=== PATIENT | female | born 1945 | race Caucasian/White ===

== ENCOUNTER → 2017-03-20 | Outpatient (CLI) | payer MEDICARE ==
[~2017-03-20] MED LIST: ALB/IPRATROPIUM/1 E1 INH; AMITRIPTYLINE150 MG PO; ATORVASTATIN CA80 MG PO; BENZONATATE PO; CLOPIDOGREL BIS75 MG PO; DOXYCYCLINE HY100 M3 PO; DULOXETINE HCL30 MG PO; ESCITALOPRAM OX10 MG PO; FISH OIL 1,001000 M2; HUMALOG100 UNIT/2; HYDRALAZINE HCL50 MG PO; ISOSORBIDE DINI30 MG PO; LANTUS100 U/ML; MELATIN3 MG; PREDNISONE PO; PULMICORT180 MCG/A1 INH; RENVELA800 MG PO; TRIGLIDE160 M1 PO; ZESTRIL40 MG PO
--- NOTE | ~2017-03-20 | MR103 ---
[facility] A Service of [facility] [place] RADIOLOGY TEXT RESULTS PATIENT: ANDRIY LIZ LOCATION: [facility] : 47 UNIT #: [id number] AGE: [address]: Carine Grajeda SEX: F ORDER DR: [id number] [facility] [address] [place], [place] [address] [id number] O MR#: [id number] #: [id number] NAME: ANDRIY LIZ : 1945 SEX: F STUDY DATE/TIME: 03/20/2017 17:13 UNIT: [facility] ROOM: STUDY DESCRIPTION: MR Knee Wo Contrast Lt Attending Physician: Carine Grajeda P.A.-C. Ordering Physician: Carine Grajeda P.A.-C. Primary Care Physician: Emile Garland Jr., M.D. [facility] REPORT This report is preliminary unless electronic signature is present. EXAM MRI left knee, 03/20/17. COMPARISON Left knee radiographs, 09/12/16. HISTORY Order states left knee swelling and osteoarthritis. History sheets states medial knee pain for three months with swelling with no known injury. No reported knee surgery. There is a minimal effusion without a popliteal cyst. Patellofemoral joint space narrowing is present. There is fairly extensive grade 4 patellofemoral compartment chondromalacia predominating in the lateral patellar and lateral femoral trochlear facets with subarticular cysts. Quadriceps and patellar tendons are intact. Cruciate ligaments are normal. There is mild myxoid degeneration of the lateral meniscus without a tear. The lateral collateral ligament complex and popliteus tendon are intact. Articular cartilage of the lateral compartment is within normal limits. The medial meniscus and MCL are intact. There is focal grade 4 chondromalacia of the weightbearing medial femoral condyle measuring 9 mm AP x 6 mm transverse with underlying marrow edema. There is no marrow lesion, fracture or sizeable loose body. Exam is motion degraded. [facility] A Service of [facility] [place] RADIOLOGY TEXT RESULTS PATIENT: AND[facility] LIZ [id number] : [birth year] UNIT #: [id number] AGE: [address]: Carine Grajeda SEX: F ORDER DR: IMPRESSION 1. 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 2. Cruciate ligaments and menisci are intact. 3. Focal 9 x 6 mm zone of grade 4 chondromalacia of the weightbearing medial femoral condyle with mild underlying marrow edema. 4. Small effusion. 5. No loose body or fracture. Dictated by... Janice Damico M.D. THIS IS AN ELECTRONICALLY VERIFIED REPORT Janice Damico M.D. at 03/22/2017 8:38 AM REMY/cole TD: 03/21/2017 13:56 JOB #: [id number] [facility] REPORT Page 1 of 1 COPY
== END | disposition home or self-care (01) ==
LOC: CMRI 16:36
DX: M17.12 Unilateral primary osteoarthritis, left knee (principal); M79.89 Other specified soft tissue disorders; M22.42 Chondromalacia patellae, left knee; M25.462 Effusion, left knee
CPT/HCPCS: 73721